=== PATIENT | female | born 1985 | race American Indian/Alaskan Native ===

== ENCOUNTER 2018-12-30 20:22 | Inpatient (IN) | payer OTHER ==
[2018-12-30 20:55] VITALS: BMI 41.5
--- NOTE | 2018-12-30 21:06 | OBHP ---
Datetime: 12/30/2018 21:01 IP Adm Impression: Term, intrauterine ; Intact Membranes IP Admit Plan: Admit to unit; Initiate labor induction protocol Admit Comment, IP Provider: A/P: at 39 wks in early labor suspected LGA - multigravida - IOL - will start cervidil - GBS negative - D/W Dr Vazquez, will admit for early labor and suspected LGA FHR - Baseline A Provider: 150 Contraction Comments Provider: irregular EGA AdmitDate IP: 39.3 Vital Signs Provider: Reviewed IP Chief Complaint: Uterine contractions; Maternal discomfort NICHD Variability Prov Fetus A: Moderate 6-25bpm NICHD Accel Fetus A IP Provider: 15X15 FHR Category Provider Fetus A: Category I NICHD Decel Fetus A IP Provider: None Dilatation, Provider: 1 Effacement, Provider: 60 Station, Provider: -3
[2018-12-30 21:54] LABS: BASO % 0.1 % (0.0-2.0); EOS # 0.1 K/uL (0.0-0.7); HEMOGLOBIN 11.4 g/dL (11.0-16.0); LYMPH # 1.9 K/uL (1.0-4.3); LYMPH % 26.6 % (20.0-40.0); MEAN CELL VOLUME 93.6 fL (81.0-99.0); MEAN CORPUSCULAR HGB CONC 35.2 g/dL (33.0-37.0); MEAN PLATELET VOLUME 8.9 fL (7.2-11.7); MONO # 0.6 K/uL (0.0-0.8); MONO % 8.9 % (0.0-10.0); NEUT # 4.4 K/uL (1.8-7.0); NEUT % 62.4 % (50.0-75.0); NRBC % 0.1 % (0.0-2.0); RBC 3.47 Mil/uL (3.80-5.20)
--- NOTE | 2018-12-30 22:12 | OBPN ---
Datetime: 12/30/2018 22:07 IP Progress Plan: Cervical Ripening FHR - Baseline A Provider: 150 IP Progress Note Comment: A/P: IUP at 39 wks IOL for early labor suspected LGA - multigravida - Cervidil placed 10:05 pm - D/W Dr Vazquez, aware NICHD Accel Fetus A IP Provider: 15X15 FHR Category Provider Fetus A: Category I NICHD Variability Prov Fetus A: Moderate 6-25bpm Dilatation, Provider: 1 Effacement, Provider: 60 Station, Provider: -3 Datetime: 12/30/2018 21:01 Contraction Comments Provider: irregular Vital Signs Provider: Reviewed NICHD Decel Fetus A IP Provider: None
[2018-12-30] MEDS ORDERED: Nalbuphine 20 mg/ml Inj (1 ml) IVP PRN (23:45)
[2018-12-30] MEDS ORDERED: DiphenhydrAMINE 50 mg/ml Inj IVP PRN (23:59)
--- NOTE | 2018-12-31 07:02 | OBADHP ---
Datetime: 12/30/2018 22:07 FHR - Baseline A Provider: 150 IP Hx Assessment: The History has been Reviewed and is Current NICHD Variability Prov Fetus A: Moderate 6-25bpm NICHD Accel Fetus A IP Provider: 15X15 FHR Category Provider Fetus A: Category I Dilatation, Provider: 1 Effacement, Provider: 60 Station, Provider: -3 Datetime: 12/30/2018 21:01 Admit Comment, IP Provider: A/P: at 39 wks in early labor suspected LGA - multigravida - IOL - will start cervidil - GBS negative - D/W Dr Vazquez, will admit for early labor and suspected LGA Contraction Comments Provider: irregular Vital Signs Provider: Reviewed IP Chief Complaint: Uterine contractions; Maternal discomfort NICHD Decel Fetus A IP Provider: None EGA AdmitDate IP: 39.3 IP Adm Impression: Term, intrauterine ; Intact Membranes IP Admit Plan: Admit to unit; Initiate labor induction protocol
[2018-12-31] MEDS ORDERED: Oxytocin 30 UNIT in NS 500 ml 30 UNITS/500 ML BAG IV ONE ×2 (07:05→08:00)
--- NOTE | 2018-12-31 07:06 | OBPN ---
Datetime: 12/31/2018 07:01 IP Procedures: Artificial ROM; Sterile Vag Exam Contraction Comments Provider: q1-5 FHR - Baseline A Provider: 130 IP Progress Note Comment: pt was examined at bed side ve 370/-2 arom mild mec plan epidual stast pitocin anticipate ndvd NICHD Accel Fetus A IP Provider: 15X15 FHR Category Provider Fetus A: Category I NICHD Variability Prov Fetus A: Moderate 6-25bpm Dilatation, Provider: 3 Effacement, Provider: 70 Station, Provider: -2
[2018-12-31] MEDS ORDERED: Fentanyl/Bupivacaine HCl 250 ML EPI ONE (07:55)
--- NOTE | 2018-12-31 10:57 | OBPN ---
Datetime: 12/31/2018 10:50 IP Progress Impression: Normal progression of labor; Reactive non-stress test IP Informed Consent Obtain: Vaginal Delivery IP Procedures: Sterile Vag Exam IP Progress Plan: Continue present management; Induction; Anticipate Vaginal Delivery Membranes, Provider: Ruptured Contraction Comments Provider: 3-4 FHR - Baseline A Provider: 130 Gestation - Est Wks by US: 39.4 Presentation-Admit: Vertex IP Progress Note Comment: Pt seen and examined, per Dr. Vazquez's request Epidural working well FHT's tracing reassuring VSS Afebrile Pitocin at 12 mU/min and contractions Q 3-4 mins Stable Anticipate Vaginal delivery Dr. Vazquez notified Vital Signs Provider: Reviewed; Within Normal Limits NICHD Accel Fetus A IP Provider: 10X10 FHR Category Provider Fetus A: Category I NICHD Variability Prov Fetus A: Moderate 6-25bpm Dilatation, Provider: 6 Effacement, Provider: 90 Station, Provider: -2 NICHD Decel Fetus A IP Provider: Early
[2018-12-31] MEDS ORDERED: Oxycodone/Acetaminophen 5/325 mg Tab PO PRN (14:19)
--- NOTE | 2018-12-31 14:19 | OBDS ---
DELIVERY PERSONNEL Anesthesiologist: OswaldoBarak bowers MD MATERNAL INFORMATION Delivery Anesthesia: Epidural Provider Comments: dr vazquez p[r baby de;overd in [place] end clen pgar 06/03 no peads cord gas pacente pat LABOR SUMMARY EDC: 01/03/2019 00:00 No. Babies in Womb: 1 Attempted: No Labor Anesthesia: Epidural LABOR INFORMATION Reason for Induction: Not Applicable Cervical Ripening Agents: Cervidil (Annotations: cervidil removed by Dr. Vazquez) Oxytocin: Augmentation Group B Beta Strep: Negative Antibiotics # of Doses: 0 MEMBRANES Membranes Rupture Method: Artificial Rupture of Membranes: 12/31/2018 07:00 Amniotic Fluid Color: Light Meconium Amniotic Fluid Amount: Scant VAGINAL DELIVERY Episiotomy: None Laceration Extension: First Degree Laceration Type: Perineal Laceration Repair Note: repaired woith 3 ch BABY A INFORMATION Born in Route : No : N/A Forceps: N/A PRESENTATION/POSITION BABY A Presentation: Cephalic Cephalic Presentation: Vertex Vertex Position: Left Occipital Anterior PLACENTA INFORMATION BABY A Placenta Method of Delivery: Spontaneous Placenta Status: Delivered INFANT INFORMATION BABY A Gestational Age at Delivery: 39.4 Gestational Status: Term IDENTIFICATION/MEDS BABY A ID Band Number: [id number] Sensor Number: [id number] Sensor Location : Cord Clamp CORD INFORMATION BABY A Nuchal Cord : Around Neck x1, Loose
[2018-12-31] MEDS ORDERED: Tdap Vaccine 0.5 ml Vial (10-64 yrs) IM ONE (14:20)
[2018-12-31] MEDS: Benzocaine/Menthol 20%-0.5% Topical Spray (60 ml) TOP PRN (19:07)
[2019-01-01 08:54] LABS: BASO % 0.2 % (0.0-2.0); EOS # 0.1 K/uL (0.0-0.7); EOS % 1.1 % (0.0-4.0); HEMOGLOBIN 11.1 g/dL (11.0-16.0); LYMPH # 1.6 K/uL (1.0-4.3); MEAN CORPUSCULAR HEMOGLOBIN 32.9 pg (27.0-31.0); MEAN PLATELET VOLUME 9.2 fL (7.2-11.7); MONO # 0.8 K/uL (0.0-0.8); MONO % 7.6 % (0.0-10.0); NEUT # 7.4 K/uL (1.8-7.0); NEUT % 75.1 % (50.0-75.0); RBC 3.37 Mil/uL (3.80-5.20); RED CELL DISTRIBUTION WIDTH 14.8 % (11.5-14.5); WHITE BLOOD COUNT 9.9 K/uL (4.8-10.8)
[2019-01-01 09:01] LABS: MEAN CELL VOLUME 96.8 fL (81.0-99.0)
[2019-01-01] MEDS: Benzocaine/Menthol 20%-0.5% Topical Spray (60 ml) TOP PRN (09:54)
--- NOTE | 2019-01-01 16:29 | OBPPN ---
Datetime: 01/01/2019 11:45 PP Pain Prov: Within normal limits PP Nausea Prov: Denies PP Flatus Prov: Yes PP BM Prov: Yes PP Breasts Prov: Not Done PP Heart Prov: Normal PP Lungs Prov: Normal PP Abdomen/Uterus Prov: Normal PP Lochia Prov: Not Done PP Vulva/Perineum Prov: Not Done PP CVA Tenderness Prov: Normal PP Extremities Prov: Normal PP Progress Prov: Normal PP Comments Phys Exam Prov: General: NAD, non-toxic Cardio: +S1, +S2, no murmurs, no S3, S4 Pulm: CTA B/L upper/lower lobes, no R/R/W. Neuro: No focal deficit, AAO x3 Abdomen: Non-distended, fundal height appreciated at the level of umbilicius Extremities: Bilateral trace non-pitting edema PP Impression Prov: Normal progression PP Plan Prov: Continue present management PP Progress Note Prov: Jose Antonio Mukherjee DO PGY1 - Internal Medicine [employer] - OBGYN Post Note Patient is a s/p vaginal delivery w/ 1st deg lac on 12/31/18 @ 1409; Seen at request of Dr Kary Vazquez. Patient was seen and examined this morning. Patient had no acute event over night. Patient reports of having bowel movement last night at 8PM, and passing flatus. She is ambulating inside the room an d the hallway. She complains of mild lower abdomen soreness. She is and using bottles. She notes of mild lochia. She otherwise denies any fever, headaches, chest pain, SOB, n/v/c/d, or dys uria. Vital signs reviewed; VSS Labs reviewed; H/H stable 11.4/32.5 --> 11.1/32.6 Mild abdominal tendnerness to palpation; Abdomen soft; bowel sounds normo active A/p: Patient is a s/p vaginal delivery w/ 1st deg lac on 12/31/18 @ 1409; Post day #1 Continued post care Continue to ambulate, fluid intake, and breastfeed Continue Colace planned discharge tomorrow planned baby circumcision tomorrow Patient was seen, examined, and discussed w/ attending physician Dr. Asael Mukherjee DO PGY1 - Internal Medicine [employer] - OBGYN Post Note Pt seen and examined with Dr Mukherjee and Mr Kaufman, Med Student, and agree with all of his findigs and POC. Vital Signs Provider PP: Reviewed; Within Normal Limits
[2019-01-02] MEDS: Oxycodone/Acetaminophen 5/325 mg Tab PO PRN ×2 (01:44→17:32)
--- NOTE | 2019-01-03 00:53 | OBDCSUM ---
Datetime: 01/02/2019 16:41 Discharged to, Provider: Home Follow up at, Provider: George Cunningham Instr Activity: Normal activity; May Shower Disch Instr Diet: Regular Discharge Diet restrict Prov: none Discharge Instructions, Provider: Routine instructions given Discharge Diagnosis, Provider: Term Delivered Discharge Time: 01/02/2019 16:42 Follow up in weeks, Provider: 6 weeks Disch Referrals: None Contraception discussed, Prov: Yes Disch Activity Restrictions: No lifting; No sexual activity; Nothing in vagina - [place], tampon s, douche Discharge Comment, Provider: Jose Antonio Mukherjee DO PGY1 - Internal Medicine [employer]arer - OBGYN Post No te Patient is a s/p vaginal delivery w/ 1st deg lac on 12/31/18 @ 1409; Seen at request of Dr Kary Vazquez. Patient was seen and examined this morning per Dr. Vazquez's request. Patient had no acute event ov er night. Patient reports of having bowel movement last night at 8PM, and passing flatus. She is ambu lating inside the room and the hallway. She complains of mild lower abdomen soreness. She is breastfe eding and using bottles. She notes of mild lochia. She otherwise denies any fever, headaches, chest p ain, SOB, n/v/c/d, or dysuria. Vital signs reviewed; VSS Labs reviewed; H/H stable 11.4/32.5 --> 11.1/32.6 Mild abdominal tendnerness to palpation; Abdomen soft; bowel sounds normo active A/p: Patient is a s/p vaginal delivery w/ 1st deg lac on 12/31/18 @ 1409; Post day #2 Continued post care Continue to ambulate, fluid intake, and breastfeed Continue Colace Circumcision performed per pt's request and after signing the consent Stable and Satisfactory condition and recovery D/C home with instructions and Rx for Motrin and Percocet and Colace Patient was seen, examined, and discussed w/ attending physician Dr. Asael Mukherjee DO PGY1 - Internal Medicine [employer]arer - OBGYN Post Note Pt seen and examined with Dr Mukherjee and Mr Kaufman, Med Student, and agree with all of his findigs and POC. Contraception after Delivery: Undecided
[2019-01-03 01:29] VITALS: BP 106/67; PULSE 71; RESP 20; TEMP 98.3; O2SAT 100
== END 2019-01-02 21:00 | disposition home or self-care (01) | DRG 373 ==
LOC: C.EROB 20:22 → C.4D 21:09 → C.4M 12-31 16:00
PROVIDERS: ADMIT Obstetrics & Gynecology; ATTEND Obstetrics & Gynecology
PROC: 3E0P7VZ Introduction of Hormone into Female Reproductive, Via Natural or Artificial Opening (ICD-10-PCS; 2018-12-30)
PROC: 10E0XZZ Delivery of Products of Conception, External Approach (ICD-10-PCS; principal; 2018-12-31)
PROC: 10907ZC Drainage of Amniotic Fluid, Therapeutic from Products of Conception, Via Natural or Artificial Opening (ICD-10-PCS; 2018-12-31)
PROC: 0HQ9XZZ Repair Perineum Skin, External Approach (ICD-10-PCS; 2018-12-31)
DX: O36.63X0 Maternal care for excessive fetal growth, third trimester, not applicable or unspecified (principal); O69.81X0 Labor and delivery complicated by cord around neck, without compression, not applicable or unspecified; O70.0 First degree perineal laceration during delivery; Z3A.39 39 weeks gestation of pregnancy; Z37.0 Single live birth